=== PATIENT | male | born 1985 | race Two or more races ===

== ENCOUNTER → 2019-08-02 | Day surgery (SDC) | payer OTHER ==
[~2019-08-02] VITALS: Ht 170.2 cm; Wt 67.1 kg
[~2019-08-02] MED LIST: DOXAPRAM HCL 20 MG/ML 20ML VIAL INJ IV ONE; HYDROmorphone HCL 2 MG/ML VL IV PRN; KETOROLAC TROMETH 30 MG/ML 1ML VIAL IV ONE; LIDOCAINE 1% HCL (LOCAL ANESTH.) INJ 20ML MDV ONE; METOCLOPRAMIDE HCL 5MG/ml INJ 2ml VIAL IV PRN; MIDAZOLAM HCL 1MG/1ML-2 ML VIAL ONE; MORPHINE SULFATE 4 MG/ML SYR/VIAL IV PRN; ONDANSETRON HCL 4 MG/2 ML VIAL ONE; PROPOFOL 10 MG/ML 20 ML IV ONE; SODIUM CHLORIDE LOCK 10 ML ONE; SUCCINYLCHOLINE CHLORIDE 20 MG/ML 10ML VIAL IV ONE; ceFAZolin 1GM/50ML 50 ML IV ONE; fentaNYL CITRATE 100 MCG/2 ML VL IV PRN; fentaNYL CITRATE 100 MCG/2 ML VL ONE
[2019-08-02 08:50] VITALS: BP 116/81
== END | disposition home or self-care (01) ==
LOC: EEVIPCON 06:00 → SUR 06:00
PROVIDERS: ATTEND Surgery
DX: L98.8 Other specified disorders of the skin and subcutaneous tissue (principal); Z79.899 Other long term (current) drug therapy
CPT/HCPCS: 11403; 87070; 87075; 87205; 88304; 88312; 88313; 88342; J0330; J0690; J2001; J2250; J2405; J2704; J3010